=== PATIENT | male | born 1955 | race Caucasian/White ===

== ENCOUNTER 2018-02-08 12:33 | Emergency (ER) | payer BC ==
[2018-02-08 13:56] LABS: PLATELET COUNT 354 10^3/uL (150-400)
--- NOTE | 2018-02-08 14:03 | EDPHY ---
H & P Stated Complaint: c/o chills/n/sorethroat x 1 day Time Seen by Provider: 02/08/18 13:47 HPI/ROS: CHIEF COMPLAINT: Palpitations, myalgias, sore throat dyspnea HISTORY OF PRESENT ILLNESS: The patient presents to the ED with complaints of worsening myalgias, sore throat and dyspnea. The patient is felt as if he has a flu-like illness which is been present for the past week. He has been experiencing symptoms of intermittent palpitations. He does have a history of paroxysmal atrial fibrillation. The patient has had some nausea and vomiting. The patient is currently visiting [place] from out of state. He denies any rash. He denies any melena or hematemesis. The patient's chief complaint is one of a moderate to severe sore throat. REVIEW OF SYSTEMS: A comprehensive 10 point review of systems is otherwise negative aside from elements mentioned in the history of present illness. Source: Patient Exam Limitations: No limitations - Medical/Surgical History Hx Asthma: Yes Hx Chronic Respiratory Disease: No Hx Diabetes: No Hx Cardiac Disease: Yes Hx Renal Disease: No Hx Cirrhosis: No Hx Alcoholism: No Hx HIV/AIDS: No Hx Splenectomy or Spleen Trauma: No Other PMH: afib, chronic sinusitis, asthma, hypertension, hyperlipidemia, knee surg x 2, nasal surg, achilles repair - Social History Smoking Status: Never smoked - Physical Exam Exam: General Appearance: Alert, no distress Eyes: Pupils equal and round no pallor or injection ENT, Mouth: Pharyngeal erythema without exudate, peritonsillar abscess or swelling Respiratory: There are no retractions, lungs are clear to auscultation Cardiovascular: Tachycardic Gastrointestinal: Abdomen is soft and nontender, no masses, bowel sounds normal Neurological: A&O, normal motor function, normal sensory exam, normal cranial nerves Skin: Warm and dry, no rashes Musculoskeletal: Neck is supple nontender Extremities: symmetrical, full range of motion Constitutional: Initial Vital Signs Temperature (C) 36.4 C 02/08/18 12:49 Heart Rate 107 H 02/08/18 12:49 Respiratory Rate 18 02/08/18 12:49 Blood Pressure 129/105 H 02/08/18 12:49 O2 Sat (%) 93 02/08/18 12:49 O2 Delivery Mode Room Air Allergies/Adverse Reactions: aspirin Allergy (Verified 02/08/18 12:55) Penicillins Allergy (Verified 02/08/18 12:55) Sulfa (Sulfonamide Antibiotics) Allergy (Verified 02/08/18 12:55) Home Medications: Medication Instructions Recorded Advair 100/50 (*) 02/08/18 Atorvastatin Calcium 02/08/18 Azithromycin [Zithromax] 250 mg PO DAILY #6 tab 02/08/18 Carvedilol 02/08/18 Lisinopril 02/08/18 Metoprolol Succinate Xr 02/08/18 Montelukast Sodium 02/08/18 Plavix 02/08/18 Spiriva Handihaler 02/08/18 Xolair 02/08/18 Medical Decision Making - Diagnostics EKG Interpretation: EKG: Complete interpretation has been separately recorded in the [facility] archive. Summary impression: Sinus tachycardia, rate 103, nonspecific ST T wave changes noted Imaging Results: Imaging Impressions Chest X-Ray 02/08/18 13:51 Impression: 1. Cardiomegaly. 2. Masslike density projected over the cardiac silhouette may represent a mediastinal mass or a hiatal hernia. Chest/Thorax CTA 02/08/18 14:57 Impression: 1. Moderate-sized paraesophageal hiatal hernia. 2. Suboptimal, without definite pulmonary thromboemboli. 3. Mild bronchitis/airways disease, without focal pneumonia, pleural effusion, or pneumothorax. Findings and recommendations discussed with Emergency Department physician, Crispin Jasmine M.D., at 1550 hours, on February 08, 2018. Final report concurs with initial preliminary interpretation. A test result has been communicated to a licensed care provider and documented in the [facility] Critical Result system on 02/08/2018 15:54, Message ID [id number]. E:amm ED Course/Re-evaluation: Patient presents to the ED with several days of an upper respiratory infection with sore throat, subjective fevers, myalgias and palpitations. The patient had an IV established as he did appear clinically dehydrated. He was taken for a chest x-ray which demonstrated a nonspecific density which has been followed up with a chest CT scan. EKG demonstrates only sinus tachycardia. Patient is noted to have a fairly significant leukocytosis without evidence of obvious metabolic derangement. The patient received IV fluids in the emergency department. He was also treated with Toradol. The patient's strep test and flu test are negative. I re-evaluated the patient he has remained in a sinus rhythm throughout his stay in the emergency department. He has had an upper respiratory infection for the past week. He does have a history of chronic sinus infections and given his sinus complaints the and leukocytosis he will be treated with oral antibiotics. The patient has no clinical evidence of meningitis. The patient was offered admission to the hospital for observation in the setting of his tachycardia however he prefers to go home. He is comfortable returning to the ED for significantly worsening symptoms. CT scan of the chest with IV contrast demonstrates no evidence of a pneumonia or mediastinal mass. The patient was re-evaluated at 4:00 p.m. And is comfortable going home. Customary aftercare instructions have been given. Differential Diagnosis: Differential diagnosis considered includes viral syndrome, influenza, bacterial pneumonia, dehydration, metabolic derangement - Data Points Laboratory Results: Laboratory Results 02/08/18 13:40 02/08/18 13:40 02/08/18 02/08/18 02/08/18 Unknown 14:20 14:03 WBC RBC Hgb Hct MCV MCH MCHC RDW Plt Count MPV Neut % (Auto) Lymph % (Auto) [place] % (Auto) Eos % (Auto) Baso % (Auto) Nucleat RBC Rel Count Absolute Neuts (auto) Absolute Lymphs (auto) Absolute Monos (auto) Absolute Eos (auto) Absolute Basos (auto) Absolute Nucleated RBC Immature Gran % Seg Neutrophils % Band Neutrophils % Lymphocytes % Monocytes % Eosinophils % Basophils % Metamyelocytes % Myelocytes % Promyelocytes % Blast Cells % Immature Gran # Absolute Seg Neuts Absolute Band Neuts Absolute Lymphocytes Absolute Monocytes Absolute Eosinophils Absolute Basophils Absolute Metamyelocyte Absolute Myelocytes Absolute Promyelocytes Absolute Plasma Cells Nucleated RBCs Absolute Blast Cells Plasma Cells % Platelet Estimate Polychromasia Hypochromasia Microcytic Cells Sodium Potassium Chloride Carbon Dioxide Anion Gap BUN Creatinine Estimated GFR Glucose Calcium Total Bilirubin Conjugated Bilirubin Unconjugated Bilirubin AST ALT Alkaline Phosphatase POC Troponin I 0.00 ng/mL ng/mL (0.00-0.08) Total Protein Albumin Lipase Nasal Influenza A PCR NEGATIVE FOR FLU A (NEGATIVE) Nasal Influenza B PCR NEGATIVE FOR FLU B (NEGATIVE) Group A Strep Screen NEGATIVE (NEGATIVE) Group A Strep DNA Pending 02/08/18 02/08/18 13:40 13:40 WBC 26.05 10^3/uL H 10^3/uL (3.80-9.50) RBC 5.98 10^6/uL 10^6/uL (4.40-6.38) Hgb 12.7 g/dL L g/dL (13.7-17.5) Hct 42.6 % % (40.0-51.0) MCV 71.2 fL L fL (81.5-99.8) MCH 21.2 pg L pg (27.9-34.1) MCHC 29.8 g/dL L g/dL (32.4-36.7) RDW 21.3 % H % (11.5-15.2) Plt Count 354 10^3/uL 10^3/uL (150-400) MPV 9.2 fL fL (8.7-11.7) Neut % (Auto) Not Reported Lymph % (Auto) Not Reported [place] % (Auto) Not Reported Eos % (Auto) Not Reported Baso % (Auto) Not Reported Nucleat RBC Rel Count Not Reported Absolute Neuts (auto) Not Reported Absolute Lymphs (auto) Not Reported Absolute Monos (auto) Not Reported Absolute Eos (auto) Not Reported Absolute Basos (auto) Not Reported Absolute Nucleated RBC Not Reported Immature Gran % Not Reported Seg Neutrophils % 78.2 % % Band Neutrophils % 9.9 % % Lymphocytes % 4.0 % % Monocytes % 6.9 % % Eosinophils % 0.0 % % Basophils % 0.0 % % Metamyelocytes % 1.0 % % Myelocytes % 0.0 % % Promyelocytes % 0.0 % % Blast Cells % 0.0 % % Immature Gran # Not Reported Absolute Seg Neuts 20.37 10^3/uL H 10^3/uL (1.70-6.50) Absolute Band Neuts 2.58 10^3/uL H 10^3/uL (0.00-0.70) Absolute Lymphocytes 1.04 10^3/uL 10^3/uL (1.00-3.00) Absolute Monocytes 1.80 10^3/uL H 10^3/uL (0.30-0.80) Absolute Eosinophils 0.00 10^3/uL L 10^3/uL (0.03-0.40) Absolute Basophils 0.00 10^3/uL L 10^3/uL (0.02-0.10) Absolute Metamyelocyte 0.26 10^3/mL H 10^3/mL (0.00-0.00) Absolute Myelocytes 0.00 10^3/mL 10^3/mL (0.00-0.00) Absolute Promyelocytes 0.00 10^3/uL 10^3/uL (0.00-0.00) Absolute Plasma Cells 0.00 10^3/uL 10^3/uL (0.00-0.00) Nucleated RBCs 0 /100 WBC /100 WBC (0-0) Absolute Blast Cells 0.00 10^3/uL 10^3/uL (0.00-0.00) Plasma Cells % 0.0 % % Platelet Estimate ADEQUATE (ADEQ) Polychromasia 2+ H Hypochromasia 1+ H Microcytic Cells 1+ H Sodium 137 mEq/L mEq/L (135-145) Potassium 4.2 mEq/L mEq/L (3.3-5.0) Chloride 103 mEq/L mEq/L (97-110) Carbon Dioxide 26 mEq/l mEq/l (22-31) Anion Gap 8 mEq/L mEq/L (6-14) BUN 15 mg/dL mg/dL (7-23) Creatinine 0.9 mg/dL mg/dL (0.7-1.3) Estimated GFR > 60 Glucose 98 mg/dL mg/dL (70-100) Calcium 9.2 mg/dL mg/dL (8.5-10.4) Total Bilirubin 0.7 mg/dL mg/dL (0.1-1.4) Conjugated Bilirubin 0.3 mg/dL mg/dL (0.0-0.5) Unconjugated Bilirubin 0.4 mg/dL mg/dL (0.0-1.1) AST 37 IU/L IU/L (17-59) ALT 33 IU/L IU/L (21-72) Alkaline Phosphatase 99 IU/L IU/L (38-126) POC Troponin I Total Protein 7.7 g/dL g/dL (6.3-8.2) Albumin 4.3 g/dL g/dL (3.5-5.0) Lipase 49 IU/L IU/L (23-300) Nasal Influenza A PCR Nasal Influenza B PCR Group A Strep Screen Group A Strep DNA Medications Given: Discontinued Medications Sodium Chloride (Ns) 1,000 mls @ 0 mls/hr IV EDNOW ONE; Wide Open PRN Reason: Protocol Stop: 02/08/18 14:47 Last Admin: 02/08/18 14:00 Dose: 1,000 mls Ketorolac Tromethamine (Toradol) 15 mg IVP EDNOW ONE Stop: 02/08/18 14:48 Last Admin: 02/08/18 14:52 Dose: 15 mg Point of Care Test Results: Chemistry 02/08/18 14:03 POC Troponin I 0.00 ng/mL ng/mL (0.00-0.08) Departure - Departure Disposition: Home, Routine, Self-Care Clinical Impression: Sinusitis Condition: Good Instructions: Sinusitis (ED) Additional Instructions: 1. Take Ibuprofen or Motrin 600 mg by mouth three times a day. 2. Please take Azithromycin for a sinus infection. 3. Please return to the ED for markedly worsening symptoms, palpitations, high fever, worsening symptoms or other concerns. Referrals: NONE *PRIMARY CARE P,. [Primary Care Provider] - As per Instructions Prescriptions: Azithromycin [Zithromax] 250 mg PO DAILY #6 tab
--- NOTE | 2018-02-08 14:04 | CPEKG ---
Test Reason : OPEN Blood Pressure : / mmHG Vent. Rate : 103 BPM Atrial Rate : 103 BPM P-R Int : 162 ms QRS Dur : 113 ms QT Int : 371 ms P-R-T Axes : 004 -13 024 degrees QTc Int : 486 ms Sinus tachycardia Probable anteroseptal infarct, old Confirmed by Crispin Jasmine ([id number]) on 02/08/2018 2:03:35 PM Referred By: Confirmed By:Crispin Jasmine
[2018-02-08] MEDS ORDERED: NS 1,000 ML IV ONE (14:46)
[2018-02-08] MEDS ORDERED: KETOROLAC 15 MG/1 ML SDV IVP ONE (14:47)
[2018-02-08] MEDS ORDERED: IOPAMIDOL (ISOVUE 370) 100 ML BTL IV ONE ×2 (15:04→15:34)
[2018-02-08 16:04] VITALS: BP 128/78
[2018-02-08 20:35] LABS: GROUP A STREP DNA (THROAT) POSITIVE (NEGATIVE)
== END 2018-02-08 16:04 | disposition home or self-care (01) ==
DX: J01.90 Acute sinusitis, unspecified (principal); J40 Bronchitis, not specified as acute or chronic; E86.9 Volume depletion, unspecified; I48.91 Unspecified atrial fibrillation; I10 Essential (primary) hypertension; E78.5 Hyperlipidemia, unspecified
CPT/HCPCS: 84484-PO; 96374; J1885; Q9967